=== PATIENT | female | born 1990 | race Caucasian/White ===

== ENCOUNTER 2016-12-19 00:22 | Emergency (ER) | payer OTHER ==
[~2016-12-19] VITALS: Ht 152.4 cm; Wt 134.0 kg
[~2016-12-19 00:22] MED LIST: AUGMENTIN875 MG PO; CIPROFLOXACN500 MG PO; FISH OIL1000 MG PO; IBUPROFEN600 MG PO; IRON325 M1 PO; NAPROSYN500 MG PO; NO HOME MEDS; PERCOCET 5/325M1 TAB OR; PRENATA1 CHW PO; ULTRAM50 M1 PO
[2016-12-19] MEDS ORDERED: PRENATAL 11 PO (00:56)
[2016-12-19 01:23] LABS: HEMATOCRIT 36.4 % (37.0-47.0); HEMOGLOBIN 12.7 g/dl (12.0-16.0); IMMATURE GRANULOCYTES 0.3 % (0.0-1.0); MEAN CELL VOLUME 81.1 fL CALC (80.0-100.0); MEAN CORPUSCULAR HGB 28.3 pG CALC (26.0-32.0); MEAN CORPUSCULAR HGB CONC 34.9 g/L CALC (32.0-36.0); NEUT# 11.68 thou/uL (2.00-7.15); RED BLOOD COUNT 4.49 mill/uL (4.20-5.60); RED CELL DISTRI WIDTH 13.2 % (11.5-15.5)
[2016-12-19 01:46] LABS: ALBUMIN 4.1 g/dL (3.2-5.0); ALKALINE PHOSPHATASE 118 u/l (38-126); AMYLASE 33 u/l (30-110); ANION GAP 14 (6-22 (CALC)); BILIRUBIN, TOTAL 0.6 mg/dL (0.0-1.4); BUN 14 mg/dL (7-17); BUN/CREATININE RATIO 23 (12-20 (CALC)); CALCIUM 9.9 mg/dL (8.4-10.2); CARBON DIOXIDE 24 mmol/l (22-30); CHLORIDE 105 mmol/l (95-108); CREATININE 0.6 mg/dL (0.5-1.0); GFR > 60 ML/MIN (>=60 (CALC)); GFR FOR AFR.AMER. > 60 ML/MIN (>=60 (CALC)); GLUCOSE 116 mg/dL (65-105); LIPASE 70 u/l (23-300); SGOT/AST 23 u/l (14-36); SGPT/ALT 44 u/l (9-52); SODIUM 139 mmol/l (137-146); TOTAL PROTEIN 7.2 g/dL (6.3-8.2)
[2016-12-19 02:14] LABS: URINE BILIRUBIN - DIPSTICK NEGATIVE (NEGATIVE); URINE BLOOD DIPSTICK NEGATIVE (NEGATIVE); URINE CLARITY CLEAR; URINE COLOR YELLOW; URINE GLUCOSE - DIPSTICK NEGATIVE (NEGATIVE); URINE KETONE >=80 mg/dL (NEGATIVE); URINE LEUK ESTERASE TRACE (NEGATIVE); URINE NITRITE - DIPSTICK NEGATIVE (Negative); URINE PH 5.5 (4.5-8.0); URINE PROTEIN - DIPSTICK TRACE mg/dL (NEG-TRACE); URINE SPECIFIC GRAVITY >=1.030; URINE UROBILINOGEN - DIPSTICK 0.2 E.U./dL (0.2)
[2016-12-19] MEDS ORDERED: ZOFRAN ODT4 MG PO (02:28)
[2016-12-19 03:10] VITALS: BP 139/72
== END 2016-12-19 03:09 | disposition home or self-care (01) | DRG 998 ==
LOC: ED 00:22
PROVIDERS: Emergency Medicine
DX: O26.899 Other specified pregnancy related conditions, unspecified trimester (principal); K52.9 Noninfective gastroenteritis and colitis, unspecified; Z3A.00 Weeks of gestation of pregnancy not specified

== ENCOUNTER 2017-03-19 16:31 | Emergency (ER) | payer OTHER ==
[~2017-03-19] VITALS: Ht 152.4 cm; Wt 129.5 kg
[~2017-03-19 16:31] MED LIST changes: +PRENATAL 11 PO; +ZOFRAN ODT4 MG PO
[2017-03-19 17:14] VITALS: BP 122/67
== END 2017-03-19 17:30 | disposition home or self-care (01) | DRG 563 ==
LOC: ED 16:31
DX: S93.401A Sprain of unspecified ligament of right ankle, initial encounter (principal); Z33.1 Pregnant state, incidental; X50.0XXA Overexertion from strenuous movement or load, initial encounter; Y93.89 Activity, other specified; Y92.89 Other specified places as the place of occurrence of the external cause

== ENCOUNTER 2017-08-02 07:22 | Inpatient (IN) | payer OTHER, MEDICAID ==
[2017-08-02] VITALS (22 sets, daily range): BP systolic 127–209; BP diastolic 59–100
[~2017-08-02] VITALS: Ht 154.9 cm; Wt 134.7 kg
--- NOTE | 2017-08-02 07:30 | NUR ---
patient ambulates to unit in stable condition accompanied by her mother. here for induction of labor for postdates. weight and height obtained. efm commenced. assessments done. awaiting dr faith for induction orders.
[2017-08-02 08:04] LABS: URINE BILIRUBIN - DIPSTICK NEGATIVE (NEGATIVE); URINE COLOR YELLOW; URINE GLUCOSE - DIPSTICK NEGATIVE (NEGATIVE); URINE KETONE NEGATIVE (NEGATIVE); URINE LEUK ESTERASE NEGATIVE (NEGATIVE); URINE NITRITE - DIPSTICK NEGATIVE (Negative); URINE PROTEIN - DIPSTICK NEGATIVE (NEG-TRACE); URINE SPECIFIC GRAVITY >=1.030; URINE UROBILINOGEN - DIPSTICK 0.2 E.U./dL (0.2)
[2017-08-02 08:06] LABS: URINE BLOOD DIPSTICK NEGATIVE (NEGATIVE); URINE CLARITY CLEAR
[2017-08-02 08:07] LABS: COCAINE NEGATIVE (NEGATIVE); METHADONE NEGATIVE (NEGATIVE); TETRAHYDROCANNABIONOL NEGATIVE (NEGATIVE); TRICYLIC ANTIDEPRESSANTS NEGATIVE (NEGATIVE)
[2017-08-02 08:08] LABS: BARBITURATES NEGATIVE (NEGATIVE); OXCYCODONE NEGATIVE (NEGATIVE)
--- NOTE | 2017-08-02 08:12 | NUR ---
dr faith on unit. proceeds to patients bedside. fhr tracing reviewed reviewed. sve done as charted. induction to be commenced.
--- NOTE | 2017-08-02 08:30 | NUR ---
iv access gained in rt hand on first attempt. blood drawn from same as ordered. site wnl.
--- NOTE | 2017-08-02 09:00 | NUR ---
induction of labor explained and commenced as ordered.
[2017-08-02 09:10] LABS: ALBUMIN 3.2 g/dL (3.2-5.0); ALKALINE PHOSPHATASE 223 u/l (38-126); ANION GAP 12 (6-22 (CALC)); BILIRUBIN, TOTAL 0.4 mg/dL (0.0-1.4); BUN 13 mg/dL (7-17); BUN/CREATININE RATIO 27 (12-20 (CALC)); CALCIUM 9.7 mg/dL (8.4-10.2); CARBON DIOXIDE 22 mmol/l (22-30); CHLORIDE 108 mmol/l (95-108); CREATININE 0.5 mg/dL (0.5-1.0); GFR > 60 ML/MIN (>=60 (CALC)); GFR FOR AFR.AMER. > 60 ML/MIN (>=60 (CALC)); GLUCOSE 126 mg/dL (65-105); POTASSIUM 4.1 mmol/l (3.5-5.1); SGOT/AST 19 u/l (14-36); SGPT/ALT 29 u/l (9-52); SODIUM 138 mmol/l (137-146)
[2017-08-02 09:11] LABS: HEMATOCRIT 34.4 % (37.0-47.0); HEMOGLOBIN 11.8 g/dl (12.0-16.0); IMMATURE GRANULOCYTES 0.5 % (0.0-1.0); MEAN CELL VOLUME 85.6 fL CALC (80.0-100.0); MEAN CORPUSCULAR HGB 29.4 pG CALC (26.0-32.0); MEAN CORPUSCULAR HGB CONC 34.3 g/L CALC (32.0-36.0); NEUT# 7.81 thou/uL (2.00-7.15); RED BLOOD COUNT 4.02 mill/uL (4.20-5.60); RED CELL DISTRI WIDTH 12.8 % (11.5-15.5)
--- NOTE | 2017-08-02 09:55 | NUR ---
OFF MONITOR TO VOID IN BATHROOM. PROCEEDS TO RECLINER AFTER WARDS. DENIES PAIN AT THIS TIME.
--- NOTE | 2017-08-02 10:54 | NUR ---
SITTING IN RECLINER. CONTINUES TO DENY PAIN. INDUCTION CONTINUES.
--- NOTE | 2017-08-02 12:46 | NUR ---
PATIENT COMPLAINS OF WORSENING PAIN WITH CONTRACTIONS. SVE DONE CHARTED. PATIENT TO BE MOVED TO BIRTHING ROOM AND MEDICATED FOR PAIN. DR NIÑO ARRIVES ON UNIT.
--- NOTE | 2017-08-02 12:52 | NUR ---
IN BIRTHING ROOM. SVE DONE BY DR NIÑO. SAME CHARTED. PATIENT TO BE MEDICATED TANMAY PER REQUEST.
--- NOTE | 2017-08-02 13:05 | NUR ---
PATIENT INVOLUNTARILY BEARING DOWN WITH CONTRACTIONS. ENCOURAGED TO BREATHE WITH CONTRACTIONS AND RELAX. ATTEMPTED TO REPOSITION PATIENT TO LEFT SIDE LYING POSITION BUT PATIENT REFUSE.
--- NOTE | 2017-08-02 13:10 | NUR ---
MEDICATED WITH NUBAIN. SEE EMAR. DR NIÑO AWARE PATIENT WANTS EPIDURAL.
--- NOTE | 2017-08-02 13:20 | NUR ---
DR OSMAN ON UNIT. EFM ULTRASOUND BEING HELD BY RN. PATIENT VERY BOISTEROUS WITH CONTRACTIONS. RN REMAINS AT BEDSIDE TO SUPPORT PATIENT.
--- NOTE | 2017-08-02 13:25 | NUR ---
FHR 100-110. PULSE OX APPLIED TO PATIENT TO DIFFERENTIATE FHR FROM PATIENT PULSE.
--- NOTE | 2017-08-02 14:00 | NUR ---
SVE DONE BY DR NIÑO. NO CHANGE FROM LAST. MICROBIOLOGY LAB TECHNICIAN NOTIFIED OF PATIENT FOR EPIDURAL. IVB OF LR COMMENCED. 1408 MD PLACES FSE FOR BETTER MONITORING OF FH. PATIENT CONTINUES TO BEAR DOWN INVOLUNTARILY WITH CONTRACTIONS
--- NOTE | 2017-08-02 14:10 | NUR ---
FILM OR VIDEOTAPE EDITOR AT BEDSIDE FOR EPIDURAL. PATIENT CONTINUES TO BEAR DOWN WITH CONTRACTIONS. PATIENT STATES SHE IS UNABLE TO SIT UP. 1419 PATIENT ASSISTED TO SITTING UP WITH FEET DANGLING ON SIDE OF BED. PATIENT STATES SHE CANNOT SIT STILL FOR PLACEMENT OF EPIDURAL. DR NIÑO ON UNIT NOTIFIED. ALSO NOTIFIED OF FHR PATTERN. PLAN OF CARE DISCUSSED WITH PATIENT. 1430 SHAVE PREP DONE. LOVE PLACED USING STERILE TECHNIQUE. PREOP MEDICATIONS EXPLAINED AND ADMINISTERED.
--- NOTE | 2017-08-02 14:49 | NUR ---
OFF EFM TO GO TO OR IN BED BY MD AND OR STAFF. SEE DELIVERY ROOM RECORD.
--- NOTE | 2017-08-02 17:45 | NUR ---
PATIENT TO ROOM FROM PACU ON [facility] ACCOMPANIED BY PACU NURSE. PATIENT MOVES SELF FROM STRECHER TO BED. PERICARE DONE. MADE COMFORTABLE. LOVE CATHETER DRAINING YELLOW URINE. SCDS IN PLACE. IVF INFUSING. SITE WNL. POSTOP INSTRUCTIONS GIVEN REGARDING PAIN CONTROL, ORAL INTAKE, AMBULATING, VITAL SIGNS, PREVENTION OF COMPLICATIONS. PATIENT VERBALISE UNDERSTANDING OF SAME. PATIENTS MOM AT BEDSIDE. CALL LIGHT WITHIN REACH. WILL CONTINUE TO OBSERVE.
--- NOTE | 2017-08-02 18:50 | NUR ---
TOOK AND TOLERATED DIET. END OF SHIFT REPORT GIVEN TO RYAN CRABTREE.
--- NOTE | 2017-08-02 19:40 | NUR ---
PT AWAKE AND ALERT- RESTING IN BED, VSS, DENIES ANY CONCERNS AT THIS TIME, PT CONT ON BEDREST- RECENT POST OP C/S, IVF'S INFUSING ORDERED W/OUT DIFFICULTY, ASSESSMENT DONE- WNL, MARII CARE DONE, PT'S MOTHER AT BEDSIDE, PT ENCOURAGED TO CALL NURSE FOR ANY NEEDS OR CONCERNS- PT VERBALIZES UNDERSTANDING.
[2017-08-03] VITALS (7 sets, daily range): BP systolic 124–147; BP diastolic 69–86
[2017-08-03 06:01] LABS: HEMATOCRIT 30.5 % (37.0-47.0); HEMOGLOBIN 10.5 g/dl (12.0-16.0); IMMATURE GRANULOCYTES 1.4 % (0.0-1.0); MEAN CELL VOLUME 85.9 fL CALC (80.0-100.0); MEAN CORPUSCULAR HGB 29.6 pG CALC (26.0-32.0); MEAN CORPUSCULAR HGB CONC 34.4 g/L CALC (32.0-36.0); NEUT# 10.69 thou/uL (2.00-7.15); RED BLOOD COUNT 3.55 mill/uL (4.20-5.60)
--- NOTE | 2017-08-03 06:05 | NUR ---
PT AWAKE AND ALERT, UP OOB AMBULATING IN , LOVE CATHETER D/C'D EARLIER, PT DENIES ANY NEEDS AT THIS TIME, ENCOURAGED TO CALL NURSE FOR ANY NEEDS OR CONCERNS.
--- NOTE | 2017-08-03 06:55 | NUR ---
REPORT RECEIVED FROM LEYDA MELGAR.
--- NOTE | 2017-08-03 07:10 | NUR ---
PT IS SITTING UP IN CHAIR. VERBALIZED GOOD PAIN CONTROL WITH MORPHINE SULFATE WAGON PERSON. IV D5W INFUSING AT 125NL/HR ON INFUSION PUMP. MORPHINE SULFATE INFUSING AT 2MG/HR ON INFUSION PUMP. IV SITE IN RT WITHOUT S/S OF IV COMPLICATIONS.
--- NOTE | 2017-08-03 08:30 | NUR ---
ASSESSMENT COMPLETED CHARTED. VSS; ABD. DRESSING C/D/I, PT HAS WAS ASSISTED UP TO BATHROOM, VOIDED 300CC WITHOUT DIFFICULTY; INSTRUCTED ON PERICARE AND DEMONSTRATED UNDERSTANDING. ABD. DRESSING IS C/D/I; FUNDUS IS FIRM AT UMBILICUS; LOCHIA RUBRA IS LIGHT. RN OFFERED PT ASSISTANCE WITH , INFANT WOULD NOT LATCH, PT REQUESTED A BOTTLE. PT NOW SITTING UP IN CHAIR BOTTLEFEEDING INFANT. CALLBELL WITHIN REACH.
--- NOTE | 2017-08-03 10:45 | NUR ---
PT RESTING QUIETLY IN BED WITH EYES CLOSED, RESPIRATIONS UNLABORED. IV MAINTAINED WITHOUT INCIDENT.
--- NOTE | 2017-08-03 12:30 | NUR ---
PT SITTING UP IN CHAIR; TOLERATED REG. DIET FOR LUNCH. DENIES ANY C/O DISCOMFORT AT THIS TIME, VERBALIZED GOOD PAIN CONTROL WITH MORPHINE SURGICAL ASST. IV LR CONTINUES TO INFUSE AT 125ML/HR ON INFUSION PUMP; MORPHINE SURGICAL ASST CONTINUES TO INFUSE AT 2MG/HR CONTINUOUSLY; IV SITE IN RH REMAINS WITHOUT S/S OF IV COMPLICATIONS. PT CONTINUES TO DECLINE RN'S OFFER TO ASSIST WITH POSITIONING AND LATCH ON FOR , STATING THAT SHE ALREADY TRIED AND WOULD NOT LATCH. POT IS BOTTLEFEEDING INFANT AT THIS TIME. CALLBELL WITHIN REACH.
--- NOTE | 2017-08-03 14:55 | NUR ---
CONTINUES RESTING QUIETLY IN BED WITH VISITORS AT BEDSIDE. DENIES ANY C/O DISCOMFORT AT THIS TIME.
--- NOTE | 2017-08-03 16:15 | NUR ---
IV FLUIDES COMPLETED. PT STATES THAT SHE DOES NOT WANT CAITLIN MORPHINE SULFATE FOR PAIN. IV FLUIDES AND MORPHINE SULFATE SPREAD CUTTER, D/GALINA. IV CHANGED TO SALINE LOC; FLUSHED WITH SALINE 10ML. IV SITE IN RH REMAINS WITHOUT S/S OF IV COMPLICATIONS. PT IS SITTING UP IN BED WITH INFANT IN ARMS AND VISITORS AT BEDSIDE. DENIES ANY C/O DISCOMFORT AT THIS TIME.
--- NOTE | 2017-08-03 17:54 | NUR ---
PT C/O UTERINE CRAMPING, RATING PAIN LEVEL AT 5:10, MEDICATED ORDERED WITH MOTRIN 600 MG PO.
--- NOTE | 2017-08-03 18:40 | NUR ---
PT HAS BEEN USING HER INCENTIVE SPIROMETER THROUGHOUT THE DAY WITHOUT BEING REMINDED, FOR 10 REP. AT A TIME.
--- NOTE | 2017-08-03 18:44 | NUR ---
PT RESTING QUIELTY IN BED, VERBALIZED RELIEF OF PAIN FROM MOTRIN GIVEN EARLIER. CARING FOR APPROPRIATELY THROUGHOUT SHIFT.
--- NOTE | 2017-08-03 19:00 | NUR ---
REPORT GIVEN TO Paulina TORRES RN.
--- NOTE | 2017-08-03 20:15 | NUR ---
1950 ASSESSMENT DONE CHARTED, PT STABLE. IV TAKEN OUT WITHOUT ISSUE. IV SITE NORMAL WITH NO S/S OF INFECTION. PT ASSISTED TO SHOWER. LINENS CHANGED. PT DENIES ANY DIZZINESS OR WEAKNESS. BED IN LOW POSITION, CALL LIGHT IN REACH. POC GIVEN TO PATIENT. WILL CONTINUE TO MONITOR.
[2017-08-04 07:15] VITALS: BP 134/73
--- NOTE | 2017-08-04 07:16 | NUR ---
PT SITTING UP IN THE CHAIR, ASSESSMENT DONE, STABLE. MEDICATED WITH LORTAB FOR BACK AND ABDOMINAL PAIN. DISCUSSED PLAN OF CARE WITH PT, INCLUDING POSSIBLE DISCHARGE TODAY. PT VERBALIZED UNDERSTANDING. DENIES ANY OTHER NEEDS AT THIS TIME.
--- NOTE | 2017-08-04 07:30 | NUR ---
DR. NIÑO AT BEDSIDE ROUNDING ON PT.
[2017-08-04] MEDS ORDERED: LORTAB 7.57.5 MG PO (11:40)
[2017-08-04] MEDS ORDERED: IBUPROFEN600 MG PO (11:41)
--- NOTE | 2017-08-04 11:53 | NUR ---
DISCHARGE INSTRUCTIONS GIVEN TO PT, INCLUDING RX FOR MOTRIN AND LORTAB. ALL QUESTIONS ANSWERED. PT VERBALIZED UNDERSTANDING. TDAP VACCINE GIVEN WELL.
--- NOTE | 2017-08-04 12:30 | NUR ---
PT DISCHARGED HOME, IN STABLE CONDITION, VIA WHEELCHAIR. ALL BELONGINS TAKEN WITH PT.
== END 2017-08-04 12:30 | disposition home or self-care (01) | DRG 765 ==
LOC: OB 07:22
PROVIDERS: ADMIT Obstetrics & Gynecology; ATTEND Obstetrics & Gynecology
PROC: 3E0P3VZ Introduction of Hormone into Female Reproductive, Percutaneous Approach (ICD-10-PCS; principal; 2017-08-02)
PROC: 10907ZC Drainage of Amniotic Fluid, Therapeutic from Products of Conception, Via Natural or Artificial Opening (ICD-10-PCS; 2017-08-02)
PROC: 10D00Z1 Extraction of Products of Conception, Low, Open Approach (ICD-10-PCS; 2017-08-02)
PROC: 0UB70ZZ Excision of Bilateral Fallopian Tubes, Open Approach (ICD-10-PCS; 2017-08-02)
DX: O48.0 Post-term pregnancy (principal); Z68.43 Body mass index [BMI] 50.0-59.9, adult; E66.01 Morbid (severe) obesity due to excess calories; O99.214 Obesity complicating childbirth; O76 Abnormality in fetal heart rate and rhythm complicating labor and delivery; O34.13 Maternal care for benign tumor of corpus uteri, third trimester; D25.9 Leiomyoma of uterus, unspecified; O75.89 Other specified complications of labor and delivery; Z3A.41 41 weeks gestation of pregnancy; Z37.0 Single live birth
CPT/HCPCS: J2540

== ENCOUNTER 2018-01-25 23:26 | Emergency (ER) | payer OTHER ==
[~2018-01-25] VITALS: Ht 154.9 cm; Wt 117.0 kg
[~2018-01-25 23:26] MED LIST changes: +LORTAB 7.57.5 MG PO
[2018-01-26] MEDS ORDERED: CORTISPORIN OTI10 M2 AD (00:01)
[2018-01-26] MEDS ORDERED: AMOXICILLIN500 MG PO (00:01)
[2018-01-26 00:15] VITALS: BP 157/95
== END 2018-01-26 00:15 | disposition home or self-care (01) | DRG 153 ==
LOC: ED 23:26
DX: H66.92 Otitis media, unspecified, left ear (principal); H60.92 Unspecified otitis externa, left ear

== ENCOUNTER 2018-09-23 10:23 | Emergency (ER) | payer OTHER ==
[~2018-09-23] VITALS: Ht 154.9 cm; Wt 136.6 kg
[~2018-09-23 10:23] MED LIST changes: +AMOXICILLIN500 MG PO; +CORTISPORIN OTI10 M2 AD; +TRAMADOL HCL50 MG PO
[2018-09-23 12:50] VITALS: BP 129/74
== END 2018-09-23 12:50 | disposition home or self-care (01) | DRG 556 ==
LOC: ED 10:23
DX: M25.572 Pain in left ankle and joints of left foot (principal); M79.672 Pain in left foot

== ENCOUNTER 2021-08-09 20:47 | Emergency (ER) | payer OTHER ==
[~2021-08-09] VITALS: Ht 154.9 cm; Wt 138.6 kg
[2021-08-09 21:34] LABS: URINE BILIRUBIN - DIPSTICK NEGATIVE (NEGATIVE); URINE BLOOD DIPSTICK TRACE-INTACT (NEGATIVE); URINE COLOR YELLOW; URINE GLUCOSE - DIPSTICK NEGATIVE (NEGATIVE); URINE KETONE TRACE mg/dL (NEGATIVE); URINE LEUK ESTERASE NEGATIVE (NEGATIVE); URINE PROTEIN - DIPSTICK NEGATIVE (NEG-TRACE); URINE SPECIFIC GRAVITY 1.025; URINE UROBILINOGEN - DIPSTICK 0.2 E.U./dL (0.2)
[2021-08-09 21:37] LABS: URINE NITRITE - DIPSTICK NEGATIVE (Negative)
[2021-08-09] MEDS ORDERED: KEFLEX500 MG PO (22:36)
[2021-08-09 22:40] VITALS: BP 138/98
== END 2021-08-09 22:47 | disposition home or self-care (01) | DRG 153 ==
LOC: ED 20:47
PROVIDERS: Emergency Medicine
DX: J06.9 Acute upper respiratory infection, unspecified (principal); Z20.822 Contact with and (suspected) exposure to COVID-19

== ENCOUNTER 2023-10-18 04:04 | Emergency (ER) | payer OTHER ==
[~2023-10-18] VITALS: Ht 154.9 cm; Wt 170.0 kg
[2023-10-18] VITALS (14 sets, daily range): BP systolic 120–169; BP diastolic 53–103
[~2023-10-18 04:04] MED LIST changes: +KEFLEX500 MG PO
[2023-10-18] MEDS ORDERED: SODIUM CHLORIDE 0.9% 1,000 ML IV STA (04:53)
[2023-10-18] MEDS ORDERED: Pantoprazole Sodium 40 MG VIAL (Protonix) IV STA (04:53)
[2023-10-18] MEDS ORDERED: ALUM & MAG HYDROX-SIMETHICONE 30 ML PO ONE (04:55)
[2023-10-18] MEDS ORDERED: KETOROLAC TROMETHAMINE 30 MG/ML SDV IV ONE (04:55)
[2023-10-18] MEDS ORDERED: LIDOCAINE VISCOUS 2% 15 ML UDC PO ONE (04:55)
[2023-10-18] MEDS ORDERED: LIDOCAINE HCL 2 % JELLY TOP ONE (05:10)
[2023-10-18 05:49] LABS: BASO% 0.5 % (0-3); EOS% 1.4 % (0-8); IMMATURE GRANULOCYTES 0.8 % (0.0-5.0); LYMPH% 25.2 % (15-41); MEAN CELL VOLUME 83.5 fL CALC (80.0-100.0); MEAN CORPUSCULAR HGB 27.1 pG CALC (26.0-32.0); MEAN CORPUSCULAR HGB CONC 32.4 g/dL CAL (32.0-36.0); MONO% 4.7 % (2-13); NEUT# 4.31 thou/uL (2.00-7.15); NEUT% 67.4 % (42-76); RED BLOOD COUNT 4.62 mill/uL (4.20-5.60); RED CELL DISTRI WIDTH 13.3 % (11.5-15.5)
[2023-10-18 05:52] LABS: HEMATOCRIT 38.6 % (37.0-47.0); HEMOGLOBIN 12.5 g/dl (12.0-16.0)
[2023-10-18 05:56] LABS: ALBUMIN 3.8 g/dL (3.2-5.0); ALKALINE PHOSPHATASE 142 u/l (38-126); BILIRUBIN, TOTAL 0.3 mg/dL (0.02-1.3); BUN 14 mg/dL (7-17); BUN/CREATININE RATIO 27 (12-20 (CALC)); CHLORIDE 104 mmol/l (95-108); CREATININE 0.5 mg/dL (0.5-1.0); GFR FOR AFR.AMER. > 60 ML/MIN (>=60 (CALC)); GFR OTHER RACES > 60 ML/MIN (>=60 (CALC)); LIPASE 90 u/l (23-300); POTASSIUM 4.2 mmol/l (3.5-5.1); SODIUM 139 mmol/l (137-146); TOTAL PROTEIN 6.7 g/dL (6.3-8.2)
[2023-10-18 06:03] LABS: ANION GAP 6 (6-22 (CALC)); CARBON DIOXIDE 33 mmol/l (22-30); SGOT/AST 37 u/l (14-36)
[2023-10-18 07:52] LABS: URINE BILIRUBIN - DIPSTICK Negative (NEGATIVE); URINE BLOOD DIPSTICK Negative (NEGATIVE); URINE GLUCOSE - DIPSTICK Negative (NEGATIVE); URINE KETONE Negative (NEGATIVE); URINE LEUK ESTERASE Negative (NEGATIVE); URINE NITRITE - DIPSTICK Negative (Negative); URINE PROTEIN - DIPSTICK Negative (NEG-TRACE); URINE SPECIFIC GRAVITY 1.015; URINE UROBILINOGEN - DIPSTICK 0.2 E.U./dL (0.2)
[2023-10-18 07:55] LABS: URINE COLOR Yellow
[2023-10-18] MEDS ORDERED: PROTONIX40 M2 PO (08:08)
== END 2023-10-18 08:33 | disposition home or self-care (01) | DRG 392 ==
LOC: ED 04:04
PROVIDERS: Family Medicine
DX: R10.13 Epigastric pain (principal)
CPT/HCPCS: Q9967; S0164

== ENCOUNTER 2024-06-18 18:34 | Emergency (ER) | payer OTHER ==
[~2024-06-18] VITALS: Ht 154.9 cm; Wt 158.0 kg
[~2024-06-18 18:34] MED LIST changes: +PROTONIX40 M2 PO
[2024-06-18 18:50] VITALS: BP 151/112
[2024-06-18 18:51] VITALS: BP 162/92
[2024-06-18] MEDS ORDERED: KETOROLAC TROMETHAMINE 30 MG/ML SDV IM ONE (19:05)
[2024-06-18] MEDS ORDERED: IBUPROFEN600 MG PO (20:01)
[2024-06-18 20:13] VITALS: BP 162/92
== END 2024-06-18 20:29 | disposition home or self-care (01) | DRG 556 ==
LOC: ED 18:34
DX: M25.551 Pain in right hip (principal); M25.561 Pain in right knee; M15.9 Polyosteoarthritis, unspecified; E66.01 Morbid (severe) obesity due to excess calories; W01.0XXA Fall on same level from slipping, tripping and stumbling without subsequent striking against object, initial encounter; Y93.E9 Activity, other interior property and clothing maintenance; Y92.009 Unspecified place in unspecified non-institutional (private) residence as the place of occurrence of the external cause

== ENCOUNTER 2024-09-06 21:38 | Emergency (ER) | payer OTHER ==
[~2024-09-06] VITALS: Ht 154.9 cm; Wt 145.0 kg
[~2024-09-06 21:38] MED LIST changes: +PREDNISONE50 MG PO; +VENTOLIN HFA108 MCG PO; +ZPAK PO
[2024-09-06] MEDS ORDERED: SODIUM CHLORIDE 0.9% 1,000 ML IV STA (22:06)
[2024-09-06] MEDS ORDERED: MORPHINE SULFATE 4 MG/ML VIAL IV STA (22:06)
[2024-09-06] MEDS ORDERED: PROMETHAZINE HCL 25 MG/ML AMP IV ONE (22:10)
[2024-09-06] MEDS ORDERED: DIATRIZOATE MEGLUMINE & SODIUM 30 ML/BTL PO ONE (22:10)
[2024-09-06] MEDS ORDERED: KETOROLAC TROMETHAMINE 30 MG/ML SDV IV ONE (22:15)
[2024-09-06 22:29] LABS: BASO% 0.4 % (0-3); EOS% 1.2 % (0-8); HEMATOCRIT 36.3 % (37.0-47.0); HEMOGLOBIN 11.7 g/dl (12.0-16.0); IMMATURE GRANULOCYTES 0.1 % (0.0-5.0); LYMPH% 29.2 % (15-41); MEAN CELL VOLUME 83.3 fL CALC (80.0-100.0); MEAN CORPUSCULAR HGB 26.8 pG CALC (26.0-32.0); MEAN CORPUSCULAR HGB CONC 32.2 g/dL CAL (32.0-36.0); MONO% 5.9 % (2-13); NEUT# 5.81 thou/uL (2.00-7.15); NEUT% 63.2 % (42-76); RED BLOOD COUNT 4.36 mill/uL (4.20-5.60); RED CELL DISTRI WIDTH 13.4 % (11.5-15.5)
[2024-09-06 22:31] VITALS: BP 139/90
[2024-09-06 22:38] LABS: ALBUMIN 4.2 g/dL (3.2-5.0); BILIRUBIN, TOTAL 0.4 mg/dL (0.02-1.3); CREATININE 0.6 mg/dL (0.5-1.0); POTASSIUM 3.9 mmol/l (3.5-5.1); TOTAL PROTEIN 7.3 g/dL (6.3-8.2)
[2024-09-06 22:45] VITALS: BP 134/83
[2024-09-06 23:00] VITALS: BP 157/93
[2024-09-06 23:16] VITALS: BP 128/72
[2024-09-06 23:31] VITALS: BP 132/81
[2024-09-06] MEDS ORDERED: LORazepam 2 MG/ML IV ONE ×2 (23:35→23:40)
[2024-09-07 00:19] LABS: URINE BILIRUBIN - DIPSTICK Negative (NEGATIVE); URINE BLOOD DIPSTICK Negative (NEGATIVE); URINE GLUCOSE - DIPSTICK Negative (NEGATIVE); URINE KETONE Negative (NEGATIVE); URINE LEUK ESTERASE Negative (NEGATIVE); URINE NITRITE - DIPSTICK Negative (Negative); URINE PH 5.5 (4.5-8.0); URINE PROTEIN - DIPSTICK Negative (NEG-TRACE); URINE SPECIFIC GRAVITY >=1.030; URINE UROBILINOGEN - DIPSTICK 0.2 E.U./dL (0.2)
[2024-09-07 00:20] LABS: URINE COLOR Yellow
[2024-09-07 01:45] VITALS: BP 132/81
== END 2024-09-07 01:45 | disposition home or self-care (01) | DRG 395 ==
LOC: ED 21:38
PROVIDERS: Family Medicine
DX: K42.9 Umbilical hernia without obstruction or gangrene (principal)
CPT/HCPCS: J2550; Q9967

== ENCOUNTER 2024-10-05 10:19 | Emergency (ER) | payer OTHER ==
[~2024-10-05] VITALS: Ht 154.9 cm; Wt 170.0 kg
[2024-10-05 10:24] VITALS: BP 155/94
[2024-10-05 10:31] VITALS: BP 169/41
[2024-10-05] MEDS ORDERED: ONDANSETRON HCl 4 MG/2 ML SDV IV ONE (10:55)
[2024-10-05] MEDS ORDERED: MORPHINE SULFATE 4 MG/ML VIAL IV ONE (10:55)
[2024-10-05 11:22] LABS: BASO% 0.2 % (0-3); EOS% 0.8 % (0-8); HEMATOCRIT 37.6 % (37.0-47.0); HEMOGLOBIN 12.2 g/dl (12.0-16.0); LYMPH% 14.6 % (15-41); MEAN CELL VOLUME 84.5 fL CALC (80.0-100.0); MEAN CORPUSCULAR HGB 27.4 pG CALC (26.0-32.0); MEAN CORPUSCULAR HGB CONC 32.4 g/dL CAL (32.0-36.0); MONO% 3.4 % (2-13); NEUT# 7.58 thou/uL (2.00-7.15); RED BLOOD COUNT 4.45 mill/uL (4.20-5.60); RED CELL DISTRI WIDTH 13.6 % (11.5-15.5)
[2024-10-05 11:26] VITALS: BP 134/85
[2024-10-05 11:30] VITALS: BP 151/101
[2024-10-05 11:39] LABS: ALBUMIN 3.8 g/dL (3.2-5.0); ALKALINE PHOSPHATASE 133 u/l (38-126); ANION GAP 9 (6-22 (CALC)); BUN 18 mg/dL (7-17); BUN/CREATININE RATIO 26 (12-20 (CALC)); CARBON DIOXIDE 30 mmol/l (22-30); CHLORIDE 104 mmol/l (95-108); CREATININE 0.7 mg/dL (0.5-1.0); ESTIMATED GFR 116 ML/MIN (>=90 (CALC)); LIPASE 85 u/l (23-300); POTASSIUM 4.2 mmol/l (3.5-5.1); SODIUM 139 mmol/l (137-146); TOTAL PROTEIN 6.6 g/dL (6.3-8.2)
[2024-10-05 11:40] VITALS: BP 160/106
[2024-10-05 11:41] LABS: BILIRUBIN, TOTAL 0.7 mg/dL (0.02-1.3); SGOT/AST 68 u/l (14-36)
[2024-10-05 12:17] LABS: URINE BILIRUBIN - DIPSTICK Negative (NEGATIVE); URINE BLOOD DIPSTICK Large (NEGATIVE); URINE GLUCOSE - DIPSTICK Negative (NEGATIVE); URINE KETONE Trace mg/dL (NEGATIVE); URINE LEUK ESTERASE Negative (NEGATIVE); URINE NITRITE - DIPSTICK Negative (Negative); URINE PH 6.5 (4.5-8.0); URINE PROTEIN - DIPSTICK 100 mg/dL (NEG-TRACE); URINE SPECIFIC GRAVITY >=1.030
[2024-10-05 12:25] LABS: URINE COLOR Yellow
[2024-10-05 12:28] LABS: URINE EPITHELIAL CELLS FEW EPI/hpf (0-FEW); URINE RBC 25-50 RBC/hpf (0-5)
[2024-10-05 13:54] VITALS: BP 160/106
== END 2024-10-05 13:55 | disposition home or self-care (01) | DRG 605 ==
LOC: ED 10:19
PROVIDERS: Family Medicine
DX: S00.83XA Contusion of other part of head, initial encounter (principal); R07.89 Other chest pain; S00.512A Abrasion of oral cavity, initial encounter; M54.2 Cervicalgia; E66.01 Morbid (severe) obesity due to excess calories; J45.909 Unspecified asthma, uncomplicated; V49.50XA Passenger injured in collision with unspecified motor vehicles in traffic accident, initial encounter
CPT/HCPCS: J2405; Q9967

== ENCOUNTER 2024-10-06 15:06 | Emergency (ER) | payer OTHER ==
[~2024-10-06] VITALS: Ht 154.9 cm; Wt 112.0 kg
[2024-10-06 15:22] VITALS: BP 149/105
[2024-10-06 15:30] VITALS: BP 155/105
[2024-10-06 15:44] VITALS: BP 155/105
== END 2024-10-06 15:50 | disposition home or self-care (01) | DRG 125 ==
LOC: ED 15:06
DX: S00.12XA Contusion of left eyelid and periocular area, initial encounter (principal); V49.50XA Passenger injured in collision with unspecified motor vehicles in traffic accident, initial encounter; E66.9 Obesity, unspecified; J45.909 Unspecified asthma, uncomplicated